=== PATIENT | male | born 1995 | race Caucasian/White ===

== ENCOUNTER 2019-07-05 21:44 | Emergency (ER) | payer OTHER ==
[2019-07-05 21:48] VITALS: BP 154/76; PULSE 72; TEMP 98.2; BMI 25.5
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
== END 2019-07-05 22:49 | disposition home or self-care (01) ==
LOC: JERFT 21:44
DX: S16.1XXA Strain of muscle, fascia and tendon at neck level, initial encounter (principal)
CPT/HCPCS: 99283-25